=== PATIENT | female | born 1960 | race Hispanic/Latino ===

== ENCOUNTER 2018-01-31 18:19 | Observation (INO) | payer BC, MEDICARE, OTHER ==
[2018-01-31 18:45] LABS: #Basophils 0.1 thou/uL (0.0-0.2); #Eosinphils 0.1 thou/uL (0.0-0.7); #Lymphocytes 1.8 thou/uL (1.20-3.40); #Monocytes 0.4 thou/uL (0.11-0.59); #Neutrophils 2.7 thou/uL (1.40-6.50); %Basophils 1.4 % (0.0-1.0); %Eosinophils 2.2 % (0.0-10.0); %Lymphocytes 35.3 % (21.0-51.0); %Monocytes 8.1 % (0.0-10.0); %Neutrophils 53.1 % (42.0-75.0); Hemoglobin 14.5 g/dL (12.0-16.0); Mean Corpuscular HGB CONC 33.5 g/dL (32.0-36.0); Mean Corpuscular Hemoglobin 33.5 pg (27.0-31.0); Mean Platelet Volume 8.6 fL (7.4-10.4); Platelet Count 164 thou/uL (130-400); RBC Distribution Width 13.1 % (11.5-14.5); Red Blood Cell (RBC) Count 4.32 mill/uL (4.20-5.40); White Blood Cell (WBC) Count 5.1 thou/uL (4.8-10.8)
[2018-01-31 19:10] LABS: ALT (SGPT) 11 U/L (8-55); AST (SGOT) 20 U/L (5-34); Albumin 3.6 g/dL (3.5-5.0); Alkaline Phosphatase 115 U/L (40-150); Anion Gap 11 mmol/L (10-20); BUN (Urea Nitrogen) 7 mg/dL (9.8-20.1); Calc. Creatinine Clearance 0 mL/min (70-130); Calcium 9.4 mg/dL (7.8-10.44); Carbon Dioxide 25 mmol/L (22-29); Chloride 108 mmol/L (98-107); Estimated GFR-MDRD 70; Globulin 2.8 g/dL (2.4-3.5); Glucose 97 mg/dL (70-105); Potassium 4.4 mmol/L (3.5-5.1); Protein, Total 6.4 g/dL (6.0-8.3); Sodium 140 mmol/L (136-145)
--- NOTE | 2018-01-31 19:58 | CT ---
NONCONTRAST HEAD CT: 01/31/18 HISTORY: Dizziness. COMPARISON: 01/10/17. CORRELATION: Brain MRI 01/11/17. FINDINGS: No parenchymal hemorrhage. No extra-axial hematoma. No midline shift. Basilar cisterns are patent. Br ain volume is age appropriate. There is stable malacic change involving the medial left frontal lobe. Chronic small vessel ischemic change of the white matter identified. With the exception of the media l left frontal lobe, cortical cerrato-white matter differentiation is preserved. No evidence of hydrocephalus. Stable malacic change involving the medial left and right cerebellar hemispheres and cerebellar vermi s. Adequate aeration of the sinuses and mastoid air cells. Cavernous carotid atherosclerosis is noted. C alvarium is intact. IMPRESSION: No acute intracranial process. POS: [facility]
--- NOTE | 2018-01-31 19:59 | RAD ---
CHEST TWO VIEWS: 01/31/18 COMPARISON: 04/19/16. HISTORY: Dizziness. FINDINGS: Normal cardiac silhouette. Pulmonary vessels and hilum are normal. Costophrenic angles are clear. No consolidation or mass. No pneumothorax or osseous abnormality. IMPRESSION: No acute cardiopulmonary process. POS: [facility]
[2018-01-31] MEDS ORDERED: Acetaminophen 500 MG TAB ONE (20:33)
[2018-01-31] MEDS ORDERED: Ondansetron HCl/PF 4 MG/2 ML Vial IVP PRN (21:59)
[2018-01-31] MEDS ORDERED: hydrALAZINE 20 MG/ML VIAL SLOW IVP PRN (21:59)
[2018-01-31] MEDS ORDERED: Acetaminophen 325 MG TAB PO PRN (21:59)
[2018-02-01 05:59] LABS: #Eosinphils 0.1 thou/uL (0.0-0.7); #Lymphocytes 1.5 thou/uL (1.20-3.40); #Monocytes 0.4 thou/uL (0.11-0.59); #Neutrophils 1.7 thou/uL (1.40-6.50); %Basophils 0.8 % (0.0-1.0); %Eosinophils 2.4 % (0.0-10.0); %Lymphocytes 40.1 % (21.0-51.0); %Monocytes 10.5 % (0.0-10.0); %Neutrophils 46.2 % (42.0-75.0); Hemoglobin 12.4 g/dL (12.0-16.0); Mean Corpuscular HGB CONC 32.7 g/dL (32.0-36.0); Mean Corpuscular Hemoglobin 32.7 pg (27.0-31.0); Mean Platelet Volume 8.8 fL (7.4-10.4); Platelet Count 142 thou/uL (130-400); White Blood Cell (WBC) Count 3.7 thou/uL (4.8-10.8)
[2018-02-01 06:14] LABS: Anion Gap 10 mmol/L (10-20); BUN (Urea Nitrogen) 9 mg/dL (9.8-20.1); Calc. Creatinine Clearance 139 mL/min (70-130); Calcium 8.8 mg/dL (7.8-10.44); Carbon Dioxide 27 mmol/L (22-29); Cardiac Risk 2.4 (Less than 4.5); Chloride 108 mmol/L (98-107); Cholesterol 128 mg/dl (< 200 Desired); Estimated GFR-MDRD 68; Glucose 80 mg/dL (70-105); HDL Cholesterol 53 mg/dL (>60 Neg Risk); LDL Cholesterol, Calculated 60 mg/dL; Potassium 3.8 mmol/L (3.5-5.1); Sodium 141 mmol/L (136-145); Triglycerides 77 mg/dL (Less than 150)
--- NOTE | 2018-02-01 06:40 | HP ---
PRIMARY CARE PHYSICIAN: Dr. Fareed Sparrow CODE STATUS: FULL CODE. TIME OF EVALUATION: 9:20 p.m. CHIEF COMPLAINT: Frequent falls and slurred speech. HISTORY OF PRESENT ILLNESS: This is a 57-year-old female patient with past medical history of previo us stroke in 2017 that left her with left-sided weakness and slurred speech, hypertension, came to [facility] after having multiple falls, the last one was yesterday, no clear triggers, no alleviatin g factors. She was also having difficulty finding words around 11:00 a.m., and blurry vision. Sympt oms are severe. No alleviating factors. REVIEW OF SYSTEMS: CONSTITUTIONAL: No fever or chills or generalized weakness. RESPIRATORY: No cough, sputum production or shortness of breath. CARDIOVASCULAR: No chest pain, palpitation. GASTROINTESTINAL: No nausea, vomiting, diarrhea or abdominal pain. MANAGER COUNTRY: The patient has slurred speech that has worsened since 11:00 a.m., frequent falls with gait ins tability, no headache. GENITOURINARY: No burning on urination. EXTREMITIES: No leg swelling. All other systems reviewed and negative except for above. PAST MEDICAL HISTORY: As mentioned in the HPI. PAST SURGICAL HISTORY: Gastric sleeve, x1, hysterectomy, right knee surgery. PSYCHIATRIC HISTORY: No previous psychiatric history. SOCIAL HISTORY: No alcohol or drugs. No smoking history. FAMILY HISTORY: Reviewed and noncontributory to current presentation. ALLERGIES: No known drug allergies. MEDICATIONS: Metformin, lisinopril, Lyrica, amitriptyline, tramadol. PHYSICAL EXAMINATION: VITAL SIGNS: Blood pressure 163/89 with heart rate 64, respiratory rate was 20, temperature 98.1, ox ygen saturation 96% on room air. GENERAL APPEARANCE: The patient is alert, oriented, no acute distress. HEENT: Normal conjunctivae. Oral mucosa. Anicteric. NECK: No JVD. RESPIRATORY: Bilateral air entry. No rales, no wheezing. Symmetrical expansion. CARDIOVASCULAR: Normal rate, regular rhythm. No murmurs, no gallop. No edema. ABDOMEN: Soft, normal bowel sounds. MUSCULOSKELETAL: Baseline range of motion and strength. No tenderness. SKIN: Warm and intact. No pallor, no rash. No redness. Peripheral pulses are present. Capillary refill seems to be intact. NEUROLOGIC: The patient has baseline left-sided weakness that seems to be worsened however, the dysa rthria is worse especially since 11:00 a.m. as reported by the patient. She also have worsening unst thiago gait with frequent falls, not before. PSYCHIATRIC: The patient has normal mood. No anxiety. Optimal judgment. EKG was reviewed. The patient has normal sinus rhythm at 60, T-wave inversion in lead III. Head CT was negative. Chest x-ray was negative. LABORATORY DATA: Labs were reviewed. White count 5.1, hemoglobin 14.5, MCV 100, platelet count 164. Chemistry: Sodium 140, potassium 4.4, chloride 108, carbon dioxide 25, anion gap 11, BUN 7, creati nine 0.8, GFR 70, glucose 97, calcium 9.4, total bilirubin 1.0, AST 20, ALT 11, alkaline phosphatase 115.0, total protein 6.4, albumin 3.6, globulin 2.8, albumin globulin ratio is 1.3. ASSESSMENT AND PLAN: The patient will be placed in the hospital with following medical problems. 1. Possible transient ischemic attack. The patient has worsening dysarthria since 11:00 a.m. Also worsening frequent falls and gait and balance. We will do a stroke protocol, will follow workup resu lts and treat accordingly. 2. Diet-controlled diabetes, place the patient on sliding scale. We will reconcile home medications . 3. Uncontrolled blood pressure, systolic 163, reconcile home meds, allow permissive hypertension. Mo pearlen presentation with acute neurological symptoms. 4. History of depression, this pain is chronic and is stable, reconcile home meds. 5. Deep venous thrombosis prophylaxis.
--- NOTE | 2018-02-01 08:03 | ULT ---
BILATERAL CAROTID DUPLEX ULTRASOUND: DATE: 02/01/18 HISTORY: TIA. TECHNIQUE: Lee scale ultrasound with color flow and spectral Doppler imaging of the extracranial carotid artery systems performed bilaterally. FINDINGS: The left ICA is tortuous. No significant plaque formation or intimal wall thickening is seen on this side. The peak systolic velocity in the right ICA measures 52 cm/second with an end-diastolic velocity of 2 4 cm/second and a systolic ratio of 0.65. The peak systolic velocity in the left ICA measures 60 cm/second with an end-diastolic velocity of 25 cm/second and a systolic ratio of 0.61. Flow in both vertebral arteries remains antegrade. IMPRESSION: No evidence of hemodynamically significant stenosis. POS: [facility]
[2018-02-01] MEDS ORDERED: Aspirin 325 mg Enteric Coated Tablet PO SCH (09:00)
[2018-02-01] MEDS ORDERED: Enoxaparin Sodium 40 MG/0.4 ML SYRINGE SC SCH ×2 (09:00)
--- NOTE | 2018-02-01 11:02 | MRI ---
MRI BRAIN WITHOUT CONTRAST: Date: 02/01/18 HISTORY: Dizziness. TIA. FINDINGS: Correlation is made with the previous day's CT scan. Comparison made with MRI of 01/11/17. No restricted diffusion is seen. There is encephalomalacia involving the medial left frontal lobe con sistent with old infarction. Changes of chronic small vessel ischemic disease are again seen. No evid ence of acute infarct, hemorrhage, midline shift, or abnormal extra-axial fluid collections are noted . The ventricular size is stable and the basilar cisterns are patent. The visualized paranasal sinuse s and mastoid air cells are well aerated. IMPRESSION: No evidence of acute intracranial process. POS: [facility]
[2018-02-01 12:13] VITALS: TEMP 97.9
[2018-02-01 15:29] VITALS: BP 176/103
--- NOTE | 2018-02-01 17:08 | EKG ---
Test Reason : Blood Pressure : / mmHG Vent. Rate : 060 BPM Atrial Rate : 060 BPM P-R Int : 138 ms QRS Dur : 076 ms QT Int : 454 ms P-R-T Axes : 004 013 024 degrees QTc Int : 454 ms Normal sinus rhythm Nonspecific ST abnormality Abnormal ECG Confirmed by GLORIA FLORES, DR. Sagastume ([id number]) on 02/01/2018 5:08:11 PM Referred By: Confirmed By:DR. Mitesh CASTRO MD
--- NOTE | 2018-02-01 19:03 | PRG ---
DATE OF SERVICE: 02/01/2018 CONSULTING PHYSICIAN: Hospitalist Service. Ms. Kessler is a 57-year-old woman with past history of mild stroke that resulted in some right-william ed weakness. She had a good resolution of this. She has had chronic lower back pain, has been manag ed by [facility]. She has had chronic numbness of the left side of the body, dating back to 2011. She was started on Lyrica for management of her pain. She gibbs s developed some unsteadiness and has fallen on occasion. She came into the hospital for concerns of a stroke. Her MRI ruled out with only an old left frontal infarct. Her carotid ultrasound did not show any stenosis. Suspect that her balance difficulties are related to the high dose of Lyrica, byers s not appear to be any other acute neurologic issues suggested that she follow up with her neurologis t and at [facility] or with me as an outpatient.
== END 2018-02-01 17:40 | disposition home or self-care (01) ==
LOC: ERS 18:19 → 2SE 22:48
PROVIDERS: ADMIT Hospitalist; ATTEND Hospitalist
DX: I69.328 Other speech and language deficits following cerebral infarction (principal); I69.354 Hemiplegia and hemiparesis following cerebral infarction affecting left non-dominant side; E11.9 Type 2 diabetes mellitus without complications; I10 Essential (primary) hypertension; F32.9 Major depressive disorder, single episode, unspecified; G89.29 Other chronic pain; M54.5 Low back pain; Z79.84 Long term (current) use of oral hypoglycemic drugs; Z79.899 Other long term (current) drug therapy; Z98.890 Other specified postprocedural states; W19.XXXA Unspecified fall, initial encounter
CPT/HCPCS: 36415; 36416; 70450; 70551; 71046; 80048; 80053; 80061; 85025; 90471; 90732; 93005; 93306; 93880; 96372; G0009; G0378; G8978-GP-CJ; G8979-GP-CJ; G8980-GP-CJ; G8987-GO-CI; G8988-GO-CI; G8989-GO-CI; G8999-GN-CI; G9158-GN-CI; G9186-GN-CI; J1650